=== PATIENT | female | born 1940 | race Caucasian/White ===

== ENCOUNTER 2024-01-16 11:11 | Inpatient (IN) | payer MEDICARE ==
[2024-01-16] MEDS ORDERED: Ipratropium/Albuterol 3 ML NEB NEB PRN (12:44)
[2024-01-16] MEDS: Melatonin 3 MG TAB PO SCH (21:52)
[2024-01-16] MEDS: Acetaminophen 500 MG TAB PO SCH (21:52)
[2024-01-16] MEDS: QUEtiapine 100 MG TAB PO SCH (21:52)
[2024-01-16] MEDS: Lorazepam 0.5 MG TAB PO PRN (22:15)
[2024-01-17 05:52] LABS: #Eosinphils 0.2 thou/uL (0.0-0.7); #Lymphocytes 1.6 thou/uL (1.20-3.40); #Monocytes 0.4 thou/uL (0.11-0.59); %Basophils 1.1 % (0.0-1.0); %Eosinophils 4.4 % (0.0-10.0); %Lymphocytes 38.4 % (21.0-51.0); %Monocytes 9.9 % (0.0-10.0); %Neutrophils 46.2 % (42.0-75.0); Hematocrit 34.9 % (36.0-47.0); Hemoglobin 11.4 g/dL (12.0-16.0); Mean Corpuscular HGB CONC 32.5 g/dL (32.0-36.0); Mean Corpuscular Hemoglobin 30.2 pg (27.0-31.0); Mean Corpuscular Volume 92.9 fl (78.0-98.0); Mean Platelet Volume 6.1 fL (7.4-10.4); Platelet Count 212 10x3/uL (130-400); RBC Distribution Width 13.2 % (11.5-14.5); Red Blood Cell (RBC) Count 3.76 mill/uL (4.20-5.40); White Blood Cell (WBC) Count 4.3 10x3/uL (4.8-10.8)
[2024-01-17 06:13] LABS: ALT (SGPT) 20 U/L (8-55); AST (SGOT) 22 U/L (5-34); Albumin 3.4 g/dL (3.4-4.8); Alkaline Phosphatase 76 U/L (40-110); Anion Gap 13 mmol/L (10-20); BUN (Urea Nitrogen) 12 mg/dL (9.8-20.1); Bilirubin, Total 0.3 mg/dL (0.2-1.2); Calc. Creatinine Clearance 39 mL/min (70-130); Carbon Dioxide 30 mmol/L (23-31); Chloride 100 mmol/L (98-107); Estimated GFR 83; Globulin 2.2 g/dL (2.4-3.5); Glucose 99 mg/dL (83-110); Potassium 3.2 mmol/L (3.5-5.1); Protein, Total 5.6 g/dL (5.8-8.1); Sodium 140 mmol/L (136-145)
[2024-01-17] MEDS: Levothyroxine Sodium 25 MCG TAB PO SCH (06:17)
[2024-01-17] MEDS: Montelukast Sodium 10 mg Tablet PO SCH (09:26)
[2024-01-17] MEDS: Cholecalciferol 1,000 UNITS (25 MCG) TAB PO SCH (09:26)
[2024-01-17] MEDS: Ascorbic Acid 500 mg Chewable Tablet PO SCH (09:26)
[2024-01-17] MEDS: Potassium Bicarbonate/Cit Ac 25 MEQ TAB PO SCH (09:26)
[2024-01-17] MEDS: Pantoprazole DR 40 MG TAB PO SCH (09:26)
[2024-01-17] MEDS: FLUoxetine HCl 20 MG CAP PO SCH (09:26)
[2024-01-17] MEDS: Polyethylene Glycol 3350 17 GM Packet PO SCH (09:27)
[2024-01-17] MEDS: Ipratropium/Albuterol 3 ML NEB NEB SCH (16:53)
[2024-01-17] MEDS: Nystatin 500,000 UNITS/5 ML UDCUP SSW SCH (17:01)
[2024-01-17] MEDS: Budesonide 0.5 MG/2 ML NEB INH SCH (18:02)
[2024-01-18 06:13] LABS: Anion Gap 14 mmol/L (10-20); BUN (Urea Nitrogen) 14 mg/dL (9.8-20.1); Calc. Creatinine Clearance 42 mL/min (70-130); Calcium 9.4 mg/dL (7.8-10.44); Carbon Dioxide 31 mmol/L (23-31); Chloride 99 mmol/L (98-107); Estimated GFR 87; Glucose 88 mg/dL (83-110); Magnesium 1.7 mg/dL (1.6-2.6); Potassium 3.1 mmol/L (3.5-5.1); Sodium 141 mmol/L (136-145)
[2024-01-18 06:15] LABS: Phosphorus 4.2 mg/dL (2.3-4.7)
[2024-01-18] MEDS: Calcium Carbonate 600 MG + Vit D TAB PO SCH (08:53)
[2024-01-18] MEDS: Loratadine 10 MG TAB PO SCH (08:53)
[2024-01-18] MEDS: Potassium Bicarbonate/Cit Ac 25 MEQ TAB PO SCH ×2 (08:53→16:35)
[2024-01-18] MEDS: Ondansetron ODT 4 MG TAB PO PRN (10:15)
[2024-01-19 06:24] LABS: BUN (Urea Nitrogen) 13 mg/dL (9.8-20.1); Calc. Creatinine Clearance 38 mL/min (70-130); Calcium 9.9 mg/dL (7.8-10.44); Carbon Dioxide 31 mmol/L (23-31); Estimated GFR 80; Glucose 85 mg/dL (83-110)
[2024-01-19 06:48] LABS: Anion Gap 14 mmol/L (10-20); Chloride 98 mmol/L (98-107); Potassium 3.9 mmol/L (3.5-5.1); Sodium 139 mmol/L (136-145)
[2024-01-19] MEDS ORDERED: Budesonide 0.5 MG/2 ML NEB INH PRN (06:52)
[2024-01-19] MEDS ORDERED: Ipratropium/Albuterol 3 ML NEB NEB PRN (06:52)
[2024-01-20] MEDS: QUEtiapine 100 MG TAB PO SCH (17:26)
[2024-01-20] MEDS: Melatonin 3 MG TAB PO SCH (17:26)
[2024-01-21] MEDS: Naproxen 500 MG TAB PO SCH (11:03)
[2024-01-21] MEDS: traZODone HCl 50 MG TAB PO SCH (18:23)
[2024-01-22] MEDS: traZODone HCl 50 MG TAB PO SCH (18:00)
[2024-01-23] MEDS: Naproxen 500 MG TAB PO SCH (14:54)
[2024-01-24] MEDS: Mag-Al Plus 1200/1200/120 MG (30 mL) UDCUP PO PRN (21:40)
[2024-01-25 06:08] VITALS: BMI 19.5
[2024-01-25] MEDS: Senokot S 8.6-50 MG TAB PO PRN (10:15)
[2024-01-27 06:28] VITALS: BMI 19.5
[2024-01-27] MEDS: Ibuprofen 200 MG TAB ONE (16:12)
[2024-01-27] MEDS: Ibuprofen 200 MG TAB PO SCH (16:13)
[2024-01-27] MEDS ORDERED: Ibuprofen 200 MG TAB PO SCH (16:15)
[2024-01-27] MEDS: Ibuprofen 400 MG TAB PO SCH (16:26)
[2024-01-28 11:09] VITALS: BP 147/73; TEMP 98.3
== END 2024-01-28 11:38 | disposition hospice, home (50) | DRG 945 ==
LOC: NAV ACUTE 19:20
PROVIDERS: ADMIT Student in an Organized Health Care Education/Training Program; ATTEND Student in an Organized Health Care Education/Training Program
PROC: F07Z9ZZ Gait Training/Functional Ambulation Treatment (ICD-10-PCS; principal; 2024-01-24)
DX: R53.81 Other malaise (principal); B37.0 Candidal stomatitis; F03.94 Unspecified dementia, unspecified severity, with anxiety; J96.11 Chronic respiratory failure with hypoxia; E03.9 Hypothyroidism, unspecified; F03.90 Unspecified dementia, unspecified severity, without behavioral disturbance, psychotic disturbance, mood disturbance, and anxiety; J44.9 Chronic obstructive pulmonary disease, unspecified; R13.10 Dysphagia, unspecified; E87.6 Hypokalemia; M85.80 Other specified disorders of bone density and structure, unspecified site; R29.6 Repeated falls; Z99.81 Dependence on supplemental oxygen; Z87.891 Personal history of nicotine dependence; Z79.891 Long term (current) use of opiate analgesic
CPT/HCPCS: 36415; 80048; 80053; 83735; 84100; 84443; 85025; 94640; J7620; Q0162